=== PATIENT | female | born 1965 ===

== ENCOUNTER 2016-05-11 12:25 | Observation (INO) | payer SELFPAY ==
--- NOTE | 2016-05-11 13:00 | ED PDOC ---
HPI: General Adult Time Seen by Provider: 05/11/16 12:42 Chief Complaint (Nursing): Chest Pain Chief Complaint (Provider): chest pain History Per: Patient History/Exam Limitations: no limitations Additional Complaint(s): 51yo female with chest pain for 1 week. It is intermittent, lasting only several minutes associated with palpitations. No syncope or dizziness. No shortness of breath. Chest pain is non-exertional, non-radiating, non- pleuritic. Blood pressure was high for several days including when she was seen in the clinical prior to arrival today. Last chest pain was yesterday. Taking Losartan PMD: clinic Past Medical History Reviewed: Historical Data, Nursing Documentation, Vital Signs Vital Signs: Last Vital Signs Temp 97.6 F 05/12/16 08:19 Pulse 89 05/12/16 09:50 Resp 18 05/12/16 08:19 BP 119/78 05/12/16 09:14 Pulse Ox 98 05/12/16 09:50 - Medical History PMH: HTN - Surgical History Surgical History: No Surg Hx - Family History Family History: States: No Known Family Hx - Home Medications Home Medications: Ambulatory Orders Medication Instructions Recorded Ferrous Sulfate [Feosol] 325 mg PO DAILY 05/11/16 Losartan [Cozaar] 25 mg PO DAILY 05/11/16 - Allergies Allergies/Adverse Reactions: Allergies Allergy/AdvReac Type Severity Reaction Status Date / Time lisinopril Allergy RASH Verified 05/11/16 12:31 shellfish derived Allergy RASH Verified 05/11/16 12:31 Review of Systems ROS Statement: Except As Marked, All Systems Reviewed And Found Negative Cardiovascular: Positive for: Chest Pain, Palpitations Respiratory: Negative for: Shortness of Breath Neurological: Positive for: Headache (forehead) Physical Exam - Reviewed Nursing Documentation Reviewed: Yes Vital Signs Reviewed: Yes - Physical Exam Appears: Positive for: Well, Non-toxic, No Acute Distress Head Exam: Positive for: ATRAUMATIC, NORMAL INSPECTION, NORMOCEPHALIC Skin: Positive for: Warm, Dry Eye Exam: Positive for: EOMI, PERRL Cardiovascular/Chest: Positive for: Regular Rate, Rhythm Respiratory: Positive for: Normal Breath Sounds. Negative for: Rales, Rhonchi, Wheezing Gastrointestinal/Abdominal: Positive for: Normal Exam, Soft. Negative for: Tenderness Extremity: Positive for: Normal ROM Neurologic/Psych: Positive for: Alert, Oriented - Laboratory Results Result Diagrams: 05/11/16 13:35 05/11/16 13:35 - ECG ECG: Positive for: Interpreted By Me ECG Rhythm: Positive for: Normal QRS, Normal ST Segment, Sinus Rhythm. Negative for: ST/T Changes Rate: 89 O2 Sat by Pulse Oximetry: 98 (RA) Pulse Ox Interpretation: Normal Medical Decision Making Medical Decision Makin differential includes acute coronary syndrome, hypertensive urgency. Plan: -EKG -labs -reassess 1516 patient placed in OBS-TELE Dx chest pain under hospitalist Dr. Weiner. Disposition - Clinical Impression Clinical Impression: Chest pain - Patient ED Disposition Is Patient to be Admitted: Yes Discussed With : Anshu Cannon Doctor Will See Patient In The: ED Counseled Patient/Family Regarding: Studies Performed, Diagnosis - Disposition Disposition Time: 15:00 Condition: FAIR - Pt Status Changed To: Hospital Disposition Of: Observation - POA Present On Arrival: None Core Measure Indicators: Chest Pain Additional Comments - Additional Comments Additional Comments: Scribe Attestation: Documented by Barney Cruz acting as a scribe for Dina Brown MD. Provider Scribe Attestation: All medical record entries made by the Scribe were at my direction and personally dictated by me. I have reviewed the chart and agree that the record accurately reflects my personal performance of the history, physical exam, medical decision making, and the department course for this patient. I have also personally directed, reviewed, and agree with the discharge instructions and disposition.
[2016-05-11 13:59] LABS: BASO # 0.1 K/uL (0.0-0.2); BASO % 1.4 % (0.0-2.0); EOS # 0.1 K/uL (0.0-0.7); EOS % 1.7 % (0.0-4.0); HEMATOCRIT 43.7 % (34.0-47.0); LYMPH # 0.9 K/uL (1.0-4.3); LYMPH % 15.9 % (20.0-40.0); MEAN CELL VOLUME 86.7 fl (81.0-99.0); MEAN CORPUSCULAR HEMOGLOBIN 28.9 pg (27.0-31.0); MEAN CORPUSCULAR HGB CONC 33.3 g/dL (33.0-37.0); MEAN PLATELET VOLUME 7.3 fl (7.2-11.7); MONO # 0.4 K/uL (0.0-0.8); MONO % 6.7 % (0.0-10.0); NEUT # 4.1 K/uL (1.8-7.0); NEUT % 74.3 % (50.0-75.0); NRBC % 0.1 % (0.0-0.0); RED CELL DISTRIBUTION WIDTH 14.5 % (11.5-14.5); WHITE BLOOD COUNT 5.5 K/uL (4.8-10.8)
[2016-05-11 14:10] LABS: BLOOD UREA NITROGEN 10 mg/dl (7-17); CALCIUM 9.4 mg/dL (8.4-10.2); CARBON DIOXIDE 25 mmol/L (22-30); CHLORIDE 105 mmol/L (98-107); GFR AFRICAN-AMERICAN > 60; GLUCOSE,RANDOM 107 mg/dL (65-105); POTASSIUM 3.4 MMOL/L (3.6-5.0); SODIUM 140 mmol/l (132-148)
--- NOTE | 2016-05-11 15:52 | ED PDOC ---
HPI: Chest Pain Time Seen by Provider: 05/11/16 12:42 Chief Complaint (Nursing): Chest Pain Past Medical History Vital Signs: Last Vital Signs Temp 98.9 F 05/11/16 12:31 Pulse 89 05/11/16 12:31 Resp 16 05/11/16 12:31 BP 155/100 H 05/11/16 12:31 Pulse Ox 98 05/11/16 15:24 - Medical History PMH: HTN - Allergies Allergies/Adverse Reactions: Allergies Allergy/AdvReac Type Severity Reaction Status Date / Time lisinopril Allergy RASH Verified 05/11/16 12:31 shellfish derived Allergy RASH Verified 05/11/16 12:31 - Laboratory Results Result Diagrams: 05/11/16 13:35 05/11/16 13:35 - ECG O2 Sat by Pulse Oximetry: 98 (RA)
--- NOTE | 2016-05-11 16:10 | CP.PCM.HP ---
History of Present Illness - History of Present Illness History of Present Illness: 51 YO F w/ a PMH of HTN, GERD, Anemia presents to the ER after having chest pain x 1 week. Pain is intermittent, sharp, 5/10 non radiating. Does not occur with excersion. She states she feels unbalanced when the chest pain starts . Chest pain is associate with palpatations. The eppisodes occur when she is sitting down or standing up. Denies N/V/D/ SOB. - Pt was referred from the clinic by Dr. Cox after noticing the patient s blood pressure was 143/108 and pt was complaining of headache. - PT has not been taking her nexium recently for the last week because she states, she didn't want it to affect the absorption of iron PMH: HTN, Thalasemia minor, GERD Med: Nexium, Losartan, Iron supplement, NExium, Meloxicam PSH: Tubo ligation 1992, Hemroidectomy 1988 Allergy: Shellfish, Lisinopril S/H: Stopped smoking in 2007, Social drinker, Lives with . PMD: Dr. Valeria COX ([facility]) ER course: - EKG - CBC: WNL - CMP: K+: 3.4 - Troponin x 1: negative - ProBNP: 54.6 - Asprin 325mg Present on Admission - Present on Admission Any Indicators Present on Admission: No Review of Systems - Review of Systems Review of Systems: none except as mentioned above Past Patient History - CARDIAC Hx Hypertension: Yes Meds Allergies/Adverse Reactions: Allergies Allergy/AdvReac Type Severity Reaction Status Date / Time lisinopril Allergy RASH Verified 05/11/16 12:31 shellfish derived Allergy RASH Verified 05/11/16 12:31 Physical Exam - Constitutional Appears: No Acute Distress - Head Exam Head Exam: ATRAUMATIC, NORMAL INSPECTION, NORMOCEPHALIC - Respiratory Exam Respiratory Exam: Clear to Auscultation Bilateral, NORMAL BREATHING PATTERN - Cardiovascular Exam Cardiovascular Exam: REGULAR RHYTHM, +S1, +S2 Additional comments: Left sided chest tenderness on palpation - GI/Abdominal Exam GI & Abdominal Exam: Normal Bowel Sounds, Soft. absent: Tenderness - Extremities Exam Extremities exam: Positive for: normal inspection. Negative for: tenderness - Neurological Exam Neurological exam: Alert, CN II-XII Intact, Oriented x3 Results - Vital Signs Recent Vital Signs: Last Vital Signs Temp 98.9 F 05/11/16 12:31 Pulse 89 05/11/16 12:31 Resp 16 05/11/16 12:31 BP 155/100 H 05/11/16 12:31 Pulse Ox 98 05/11/16 15:24 - Labs Result Diagrams: 05/11/16 13:35 05/11/16 13:35 Assessment & Plan - Assessment and Plan (Free Text) Assessment: 1) Chest pain r/o ACS most likely Costochondritis vs GERD - Troponin x 1 neg - EKG Wnl - Pt has not taken Nexium within last week. - F/U troponins 2) Hypertension - Losartan 25mg - monitor 3)GERD - Pepcid 4) DVT prophylaxis - SCD
[2016-05-12 05:13] VITALS: RESP 18; TEMP 97.6
--- NOTE | 2016-05-12 07:19 | CARD ---
APPROVED REPORT EKG Measurement Heart [id number] <Conclusion> Normal sinus rhythm Possible Left atrial enlargement Borderline ECG
--- NOTE | 2016-05-12 08:18 | CP.PCM.DIS ---
Provider - Provider Date of Admission: 05/11/16 15:16 Attending physician: Wilma Moore MD Primary care physician: Valeria Huddleston MD Time Spent in preparation of Discharge (in minutes): 30 Hospital Course - Lab Results Lab Results: Most Recent Lab Values WBC 5.5 K/uL (4.8-10.8) 05/11/16 13:35 RBC 5.04 Mil/uL (3.80-5.20) 05/11/16 13:35 Hgb 14.6 g/dL (12.0-16.0) 05/11/16 13:35 Hct 43.7 % (34.0-47.0) 05/11/16 13:35 MCV 86.7 fl (81.0-99.0) 05/11/16 13:35 MCH 28.9 pg (27.0-31.0) 05/11/16 13:35 MCHC 33.3 g/dL (33.0-37.0) 05/11/16 13:35 RDW 14.5 % (11.5-14.5) 05/11/16 13:35 Plt Count 244 K/uL (130-400) 05/11/16 13:35 MPV 7.3 fl (7.2-11.7) 05/11/16 13:35 Neut % (Auto) 74.3 % (50.0-75.0) 05/11/16 13:35 Lymph % (Auto) 15.9 % (20.0-40.0) L 05/11/16 13:35 [place] % (Auto) 6.7 % (0.0-10.0) 05/11/16 13:35 Eos % (Auto) 1.7 % (0.0-4.0) 05/11/16 13:35 Baso % (Auto) 1.4 % (0.0-2.0) 05/11/16 13:35 Neut # 4.1 K/uL (1.8-7.0) 05/11/16 13:35 Lymph # 0.9 K/uL (1.0-4.3) L 05/11/16 13:35 [place] # 0.4 K/uL (0.0-0.8) 05/11/16 13:35 Eos # 0.1 K/uL (0.0-0.7) 05/11/16 13:35 Baso # 0.1 K/uL (0.0-0.2) 05/11/16 13:35 Sodium 140 mmol/l (132-148) 05/11/16 13:35 Potassium 3.4 MMOL/L (3.6-5.0) L 05/11/16 13:35 Chloride 105 mmol/L (98-107) 05/11/16 13:35 Carbon Dioxide 25 mmol/L (22-30) 05/11/16 13:35 Anion Gap 13 (10-20) 05/11/16 13:35 BUN 10 mg/dl (7-17) 05/11/16 13:35 Creatinine 0.5 mg/dL (0.7-1.2) L 05/11/16 13:35 Est GFR ( Amer) > 60 05/11/16 13:35 Est GFR (Non-Af Amer) > 60 05/11/16 13:35 POC Glucose (mg/dL) 121 mg/dL (65-110) H 05/11/16 13:04 Random Glucose 107 mg/dL (65-105) H 05/11/16 13:35 Calcium 9.4 mg/dL (8.4-10.2) 05/11/16 13:35 Troponin I < 0.0120 ng/mL (0.00-0.120) 05/12/16 07:07 NT-Pro-B Natriuret Pep 54.6 pg/ml (0-900) 05/11/16 13:35 - Hospital Course Hospital Course: 51 YO F W/ PMH of HTN, GERD, was admitted to the hospital after having a one week long episode of intermittent chest pain which was associated with palpitations. PT has had a holter monitor in the past which was WNL. On admission pt was thoroughly worked up which showed possible left atrial enlargement on EKG. Troponin x3 was negative. Patients remained asymptomatic during admission and vitals remained stable. PT has been advised to follow up with PMD within the next week, spoke to to pts PMD, setting up echo/ stress test for patient to get done on outpatient. Discharge Exam - Head Exam Head Exam: ATRAUMATIC, NORMAL INSPECTION, NORMOCEPHALIC - Eye Exam Eye Exam: Normal appearance - Respiratory Exam Respiratory Exam: NORMAL BREATHING PATTERN. absent: Rales, Wheezes - Cardiovascular Exam Cardiovascular Exam: REGULAR RHYTHM, +S1, +S2 - GI/Abdominal Exam GI & Abdominal Exam: Normal Bowel Sounds, Soft. absent: Rigid, Tenderness - Extremities Exam Extremities exam: normal inspection - Neurological Exam Neurological exam: Alert, CN II-XII Intact, Normal Gait, Oriented x3 Discharge Plan - Follow Up Plan Condition: STABLE Disposition: HOME/ ROUTINE Additional Instructions: - Patient has been advised to follow up with her PMD outpatient for further work up within the next week. Continue taking current medications. Pt has been asymptomatic and blood pressure has been well controlled during admission. If symptoms worsen or or reoccur please return to ER. - Outpatient is scheduling pt for Stress test in the next week. Please follow up Referrals: Valeria Huddleston MD [Primary Care Provider] -
[2016-05-12 08:20] VITALS: BP 119/78
[2016-05-12] MEDS ORDERED: Nasal Spray(Ocean spray) NAS ONE (08:28)
[2016-05-12 09:49] VITALS: O2SAT 98
[2016-05-12 09:51] VITALS: PULSE 89
== END 2016-05-12 14:20 | disposition home or self-care (01) ==
LOC: H.ER 12:25 → H.ERHOLD 15:16 → H.TEL 22:09
PROVIDERS: ADMIT Family Medicine Geriatric Medicine; ATTEND Family Medicine Geriatric Medicine
DX: R07.9 Chest pain, unspecified (principal); I10 Essential (primary) hypertension; K21.9 Gastro-esophageal reflux disease without esophagitis; D64.9 Anemia, unspecified; D56.3 Thalassemia minor; Z91.013 Allergy to seafood; R00.2 Palpitations; Z87.891 Personal history of nicotine dependence